=== PATIENT | female | born 1950 | race Caucasian/White ===

== ENCOUNTER 2016-08-08 12:33 | Observation (INO) | payer OTHER ==
[~2016-08-08] VITALS: Ht 170.2 cm; Wt 122.5 kg
[~2016-08-08 12:33] MED LIST: KETOROLAC TROMETHAMINE 60 MG/2 ML (IM) VIAL IM ONE; LACTATED RINGER'S 1000 ML INJ 1,000 ML IV ONE; ONDANSETRON HCL 4 MG/2 ML VIAL IV PUSH ONE; PHENYLEPH/NS 1000 MCG/10 ML SYR IV ONE; PROPOFOL 200 MG/20 ML AMP IV ONE; Z.0.NO CURRENT MEDS
[2016-08-08 12:36] VITALS: BP 148/108; PULSE 96; RESP 20; TEMP 98.3; O2SAT 98
--- NOTE | 2016-08-08 12:40 | PD ---
Physical Exam Date Seen by Provider: Aug 08, 2016 Time Seen by Provider: 12:38 Narrative 66 yo female here with N/V/D and RLQ pain for 48 hours. Nothing makes it better. No recent injury or travel. Cannot keep anything down. Pain is 7/10. Headache as well on the front. Pain only on the right side. No blood in urine or BM. Pain does not radiate. Vitals sign stable. Patient awaiting bed placement Data Data Last Documented VS Vital Signs Date Time Temp Pulse Resp B/P Pulse Ox O2 Delivery O2 Flow Rate FiO2 08/08/16 12:36 98.3 96 20 148/108 98 Room Air [facility] Medical Record Reviewed: Yes Supervised Visit with APRIL: No Ferdinand De Leon Aug 08, 2016 12:39
[2016-08-08] MEDS ORDERED: PROZ20CA11 PO (13:23)
[2016-08-08] MEDS ORDERED: BENA5TAB PO (13:23)
[2016-08-08] MEDS ORDERED: SODIUM CHLOR 0.9% 1000 ML INJ 1,000 ML IV SCH ×2 (13:36→18:12)
--- NOTE | 2016-08-08 13:37 | PD ---
HPI Chief Complaint: Abdominal Pain Time Seen by Provider: 13:37 Travel History International Travel<30 days: No Contact w/Intl Traveler<30days: No Traveled to known affect area: No History of Present Illness HPI 66-year-old female with history of hypertension presents to the emergency department for evaluation of right lower quadrant abdominal pain, nausea and diarrhea for 3 days. The patient states that the pain is a constant dull pain in the right lower quadrant. States is aggravated with palpation and movement. Denies any alleviating factors. States that she's had constant nausea and loss of appetite. Denies any vomiting. States that the first day that she was experiencing this abdominal pain she had copious amounts of diarrhea. States that since then she has not passed any stool over the past 2 days however admits that she has not really eaten or drank anything due to her nausea. She denies any fever, chills, chest pain, shortness of breath, dysuria, urinary frequency, hematuria. Prior abdominal surgeries include hysterectomy. She is also complaining of a pruritic rash on bilateral palms of hands for the past month, has been intermittently pruritic. Denies any change in soaps or detergents or contact with chemicals. She is not tried anything for this rash so far. No other complaints. PFSH Past Medical History High Cholesterol: Yes Diabetes: Yes Patient Takes Glucophage: No Past Surgical History Hysterectomy: Yes Other Surgery: Yes (cervical fusion, breast augmentation) Social History Alcohol Use: Yes (rare) Tobacco Use: No (quit 3 days ago) Substance Use: No Allergies-Medications (Allergen,Severity, Reaction): Coded Allergies: Penicillin (Verified Allergy, Intermediate, Swelling, 06/18/06) Tetracycline (Verified Adverse Reaction, Intermediate, Nausea/Vomiting, 06/18/06) Reported Meds & Prescriptions Reported Meds & Active Scripts Active Reported Benazepril (Benazepril HCl) 5 Mg Tab 5 Mg PO DAILY Prozac (Fluoxetine HCl) 20 Mg Cap 20 Mg PO DAILY Review of Systems Except as stated in HPI: all other systems reviewed are Neg Physical Exam Narrative GENERAL: Well-nourished and well-developed pleasant male patient in no acute distress who is nontoxic appearing. SKIN: Warm and dry. HEAD: Normocephalic and atraumatic. EYES: No injection, drainage, or hyphema noted. PERRLA. EOMI. ENT: No nasal drainage noted. Oropharynx is clear. NECK: Supple and the trachea is midline. CARDIOVASCULAR: Regular rate and rhythm. RESPIRATORY: Breath sounds are equal bilaterally with no accessory muscle use, wheezing, rhonchi, or crackles. GASTROINTESTINAL: Right lower quadrant tenderness to palpation. Abdomen is soft and nondistended. No rebound tenderness or guarding. MUSCULOSKELETAL: No obvious deformities, swelling, cyanosis, or ecchymosis is present throughout the upper and lower extremities. Patient has full range of motion without any signs of neurovascular compromise. NEUROLOGICAL: Awake, alert, and oriented. Normal speech and gait. Cranial nerves are grossly intact. Data Data Last Documented VS Vital Signs Date Time Temp Pulse Resp B/P Pulse Ox O2 Delivery O2 Flow Rate FiO2 08/08/16 15:37 82 18 142/79 Room Air 08/08/16 14:46 98 08/08/16 12:36 98.3 Orders Complete Blood Count With Diff (08/08/16 12:39) Comprehensive Metabolic Panel (08/08/16 12:39) Urinalysis - C+S If Indicated (08/08/16 12:39) Lipase (08/08/16 12:39) Ct Abd/Pel W Iv Contrast(Rout) (08/08/16 13:36) Sodium Chlor 0.9% 1000 Ml Inj (Ns 1000 M (08/08/16 13:36) Ondansetron Inj (Zofran Inj) (08/08/16 13:45) Iohexol 350 Inj (Omnipaque 350 Inj) (08/08/16 15:09) Ciprofloxacin 400 Mg Premix (Cipro 400 M (08/08/16 15:30) Metronidazole 500 Mg Inj (Flagyl 500 Mg (08/08/16 15:30) Morphine Inj (Morphine Inj) (08/08/16 15:30) NPO (08/08/16 15:50) Admit Order (Ed Use Only) (08/08/16 15:52) Labs Laboratory Tests Test 08/08/16 08/08/16 13:45 15:00 White Blood Count 10.7 TH/MM3 Red Blood Count 4.89 MIL/MM3 Hemoglobin 13.7 GM/DL Hematocrit 41.4 % Mean Corpuscular Volume 84.6 FL Mean Corpuscular Hemoglobin 27.9 PG Mean Corpuscular Hemoglobin 33.0 % Concent Red Cell Distribution Width 14.1 % Platelet Count 327 TH/MM3 Mean Platelet Volume 9.0 FL Neutrophils (%) (Auto) 73.8 % Lymphocytes (%) (Auto) 17.2 % Monocytes (%) (Auto) 7.4 % Eosinophils (%) (Auto) 1.2 % Basophils (%) (Auto) 0.4 % Neutrophils # (Auto) 7.9 TH/MM3 Lymphocytes # (Auto) 1.9 TH/MM3 Monocytes # (Auto) 0.8 TH/MM3 Eosinophils # (Auto) 0.1 TH/MM3 Basophils # (Auto) 0.0 TH/MM3 CBC Comment DIFF FINAL Differential Comment Sodium Level 136 MEQ/L Potassium Level 3.7 MEQ/L Chloride Level 102 MEQ/L Carbon Dioxide Level 24.3 MEQ/L Anion Gap 10 MEQ/L Blood Urea Nitrogen 8 MG/DL Creatinine 0.91 MG/DL Estimat Glomerular Filtration 62 ML/MIN Rate Random Glucose 94 MG/DL Calcium Level 9.1 MG/DL Total Bilirubin 1.2 MG/DL Aspartate Amino Transf 10 U/L (AST/SGOT) Alanine Aminotransferase 16 U/L (ALT/SGPT) Alkaline Phosphatase 136 U/L Total Protein 8.1 GM/DL Albumin 3.4 GM/DL Lipase 87 U/L Urine Color YELLOW Urine Turbidity CLEAR Urine pH 5.5 Urine Specific [place] 1.010 Urine Protein NEG mg/dL Urine Glucose (UA) NEG mg/dL Urine Ketones NEG mg/dL Urine Occult Blood NEG Urine Nitrite NEG Urine Bilirubin NEG Urine Urobilinogen LESS THAN 2.0 MG/DL Urine Leukocyte Esterase NEG Urine WBC 1 /hpf Urine Squamous Epithelial <1 /hpf Cells Urine Mucus FEW /lpf Microscopic Urinalysis Comment CULT NOT INDICATED MDM Medical Decision Making Medical Screen Exam Complete: Yes Emergency Medical Condition: Yes Differential Diagnosis Colitis versus diverticulitis versus appendicitis versus gastroenteritis Narrative Course 66-year-old female presents to the emergency department for evaluation of right lower quadrant abdominal pain, nausea and diarrhea. Patient is afebrile, vital signs are stable. Physical examination reveals she has right lower quadrant tenderness to palpation. No peritoneal signs. IV access was obtained, labs were drawn and sent. Patient is placed on cardiac telemetry pulse oximetry monitoring. Patient is administered IV fluids and Zofran. CBC is unremarkable. CMP shows slightly elevated total bilirubin of 1.2, elevated alkaline phosphatase 136. Urinalysis shows few mucus. CT of the abdomen and pelvis shows findings of concern for early appendicitis, mildly nonspecific bowel gas pattern most consistent with a mild ileus, mild hepatic steatosis. 1530 Gen. surgeon on-call was paged. Patient has been given Cipro and Flagyl IV. After speaking with Dr. Myers patient will be admitted under observation to his service for appendicitis. I discussed the case with my attending physician Dr. Lebron who is aware of the patients history, physical examination findings, and treatment plan. Physician Communication Physician Communication I spoke with Dr. Myers general surgeon collection clerk who agrees to admit the patient under observation to his service. Diagnosis Primary Impression: Appendicitis Qualified Code: K35.89 - Other acute appendicitis Admitting Information Admitting Physician Requests: Observation Sheyla Huber Aug 08, 2016 13:37
[2016-08-08] MEDS ORDERED: ONDANSETRON HCL 4 MG/2 ML VIAL IV PUSH ONE (13:45)
[2016-08-08 13:55] LABS: AUTOMATED NEUTROPHIL # 7.9 TH/MM3 (1.8-7.7); BASOPHIL % 0.4 % (0.0-2.0); EOSINOPHIL # 0.1 TH/MM3 (0-0.4); EOSINOPHIL % 1.2 % (0.0-4.0); HEMATOCRIT 41.4 % (35.0-46.0); HEMO FLAGS DIFF FINAL; LYMPH % 17.2 % (9.0-44.0); LYMPHOCYTE # 1.9 TH/MM3 (1.0-4.8); MEAN CELL VOLUME 84.6 FL (80.0-100.0); MEAN CORPUSCULAR HEMOGLOBIN 27.9 PG (27.0-34.0); MONO % 7.4 % (0.0-8.0); NEUT % 73.8 % (16.0-70.0); PLATELET COUNT 327 TH/MM3 (150-450); RED BLOOD COUNT 4.89 MIL/MM3 (4.00-5.30); RED CELL DISTRIBUTION WIDTH 14.1 % (11.6-17.2); WHITE BLOOD COUNT 10.7 TH/MM3 (4.0-11.0)
[2016-08-08 14:13] LABS: ANION GAP 10 MEQ/L (5-15); AST (GOT) 10 U/L (15-37); BICARBONATE 24.3 MEQ/L (21.0-32.0); BLOOD UREA NITROGEN 8 MG/DL (7-18); CHLORIDE 102 MEQ/L (98-107); GLOMERULAR FILTRATION RATE 62 ML/MIN (>89); POTASSIUM 3.7 MEQ/L (3.5-5.1); SODIUM (NA) 136 MEQ/L (136-145)
[2016-08-08 14:17] LABS: ALKALINE PHOSPHATASE 136 U/L (45-117); ALT (GPT) 16 U/L (10-53); TOTAL BILIRUBIN ADULT 1.2 MG/DL (0.2-1.0)
[2016-08-08 14:46] VITALS: BP 108/62; PULSE 86; RESP 16; O2SAT 98
[2016-08-08] MEDS ORDERED: IOHEXOL 350 MG/ML 10 ML VIAL (for RAD DIAG) IV ONE (15:09)
[2016-08-08 15:19] LABS: BLOOD, URINE NEG (NEG); COMMENT (UR) CULT NOT INDICATED; CULTURE IF INDICATED CULT NOT INDICATED; GLUCOSE,URINE NEG (NEG); KETONE, URINE NEG (NEG); MUCUS URINE FEW /lpf (OCC); NITRITE,URINE NEG (NEG); PH, URINE 5.5 (5.0-8.5); SQUAMOUS EPITHELIAL CELL URINE <1 /hpf (0-5); URINE COLOR YELLOW (YELLW/STRAW)
--- NOTE | 2016-08-08 15:26 | RADRPT ---
EXAM DATE/TIME: 08/08/2016 15:02 [facility] COMPARISON: No previous studies available for comparison. INDICATIONS : Right lower quadrant pain. IV CONTRAST: 95 cc Omnipaque 350 (iohexol) IV ORAL CONTRAST: No oral contrast ingested. RADIATION DOSE: 21.95 CTDIvol (mGy) MEDICAL HISTORY : None SURGICAL HISTORY : Hysterectomy. ENCOUNTER: Initial ACUITY: 1 day PAIN SCALE: 5/10 LOCATION: Right lower quadrant TECHNIQUE: Volumetric scanning of the abdomen and pelvis was performed. Using automated exposure control and ad justment of the mA and/or kV according to patient size, radiation dose was kept as low as reasonably achievable to obtain optimal diagnostic quality images. FINDINGS: LOWER LUNGS: The visualized lower lungs are clear. LIVER: Homogeneous density without lesion. There is no dilation of the biliary tree. No calcified gallston es. There is mild hepatic steatosis SPLEEN: Normal size without lesion. PANCREAS: Within normal limits. KIDNEYS: Normal in size and shape. There is no mass, stone or hydronephrosis. ADRENAL GLANDS: Within normal limits. VASCULAR: There is no aortic aneurysm. BOWEL/MESENTERY: The appendix is mildly prominent measuring up to 1 cm in diameter with mild surrounding inflammatory change in the mesentery. There is no appendicolith, free air or fluid. There is a mildly nonspecific bowel gas pattern with nondilated loops of small bowel several small air-fluid levels. There is no fr ee air or fluid. ABDOMINAL WALL: Within normal limits. RETROPERITONEUM: There is no lymphadenopathy. BLADDER: No wall thickening or mass. REPRODUCTIVE: Within normal limits. INGUINAL: There is no lymphadenopathy or hernia. MUSCULOSKELETAL: Within normal limits for patient age. CONCLUSION: 1. Findings of concern for early appendicitis. 2. Mildly nonspecific bowel gas pattern most consistent with a mild ileus. 3. Mild hepatic steatosis. Dallas Armenta MD on August 08, 2016 at 15:19 Board Certified Radiologist. This report was verified electronically.
[2016-08-08] MEDS ORDERED: MORPHINE SULFATE 4 MG/ML INJ IV PUSH ONE (15:30)
[2016-08-08] MEDS ORDERED: CIPROFLOXACIN 400 MG PREMIX 200 ML IV ONE (15:30)
[2016-08-08] MEDS ORDERED: metroNIDAZOLE 500 MG INJ 100 ML IV ONE (15:30)
[2016-08-08 15:37] VITALS: BP 142/79; PULSE 82; RESP 18
[2016-08-08 17:01] VITALS: BP 119/72; PULSE 80; RESP 18; O2SAT 98
--- NOTE | 2016-08-08 18:10 | HHI.HP ---
cc: Kyle Myers MD [facility] Service General Surgery Primary Care Physician Milton Kenny Do, MD Admission Diagnosis Appendicitis Chief Complaint: Abdominal pain x 72 hours History of Present Illness This is a 66 year old female with a PMH of prolapse heart valve, hyperlipidemia and depression who has had RLQ pain x 72 hours. She describes the pain as dull and constant and has not increased since it started on Thursday. She has had nausea but no vomiting. She has had diarrhea. She has had very little to eat and only sipped on some tomato juice and had about 6 crackers since Thursday. She did some yard work on Thursday and attributed the pain to a pulled muscle. She had come to the ED for evaluation of her abdominal pain. A CT was done with shows signs of early appendicitis. Her WBC is 10.7. A General Surgery consult has been requested for evaluation of RLQ pain. Review of Systems Constitutional: COMPLAINS OF: Weight loss, DENIES: Fever, Chills Endocrine: DENIES: Polydipsia, Polyuria, Polyphagia Eyes: DENIES: Diplopia, Eye inflammation Ears, nose, mouth, throat: DENIES: Hearing loss Respiratory: DENIES: Apneas, Cough Cardiovascular: DENIES: Chest pain Gastrointestinal: COMPLAINS OF: Abdominal pain (RLQ pain ), Diarrhea, Nausea, DENIES: Vomiting Genitourinary: DENIES: Urinary frequency, Urinary incontinence Musculoskeletal: DENIES: Muscle aches Integumentary: DENIES: Abnormal pigmentation Hematologic/lymphatic: DENIES: Bruising Immunologic/allergic: DENIES: Eczema Neurologic: DENIES: Headache, Localized weakness Psychiatric: DENIES: Confusion, Mood changes, Hallucinations Past Family Social History Past Medical History Prolapsed valve in heart Depression Hyperlipemia Currently being worked up for auto-immune disease by PCP Fibromyalgia Past Surgical History Post cervical fusion TIFFANIE Tubal ligation Breast augmentation x2 Reported Medications Benazepril Prozac Allergies: Coded Allergies: Penicillin (Verified Allergy, Intermediate, Swelling, 06/18/06) Tetracycline (Verified Adverse Reaction, Intermediate, Nausea/Vomiting, 06/18/06) Family History Non contributory Social History + Tobacco use- Quit three days ago; prior to that time: 6 cigarettes/daily Denies ETOH Denies illicit drug use Takes care of terminal ill sister at home Physical Exam Vital Signs Vital Signs Date Time Temp Pulse Resp B/P Pulse Ox O2 Delivery O2 Flow Rate FiO2 08/08/16 17:01 80 18 119/72 98 Room Air 08/08/16 15:37 82 18 142/79 Room Air 08/08/16 14:46 86 16 108/62 98 Room Air 08/08/16 12:36 98.3 96 20 148/108 98 Room Air Physical Exam GENERAL: Pleasant 66 year old female in NAD. SKIN: Warm and dry. HEAD: Atraumatic. Normocephalic. EYES: Pupils equal and round. No scleral icterus. No injection or drainage. ENT: No nasal bleeding or discharge. Mucous membranes pink and moist. NECK: Trachea midline. CARDIOVASCULAR: Regular rate and rhythm. RESPIRATORY: No accessory muscle use. Clear to auscultation. Breath sounds equal bilaterally. GASTROINTESTINAL: Abdomen soft, obese; tender in RLQ; non distended. MUSCULOSKELETAL: Extremities without clubbing, cyanosis, or edema. No obvious deformities. NEUROLOGICAL: Awake and alert. No obvious cranial nerve deficits. Motor grossly within normal limits. Five out of 5 muscle strength in the arms and legs. Normal speech. PSYCHIATRIC: Appropriate mood and affect; insight and judgment normal. Laboratory Laboratory Tests Test 08/08/16 08/08/16 13:45 15:00 White Blood Count 10.7 Red Blood Count 4.89 Hemoglobin 13.7 Hematocrit 41.4 Mean Corpuscular Volume 84.6 Mean Corpuscular Hemoglobin 27.9 Mean Corpuscular Hemoglobin 33.0 Concent Red Cell Distribution Width 14.1 Platelet Count 327 Mean Platelet Volume 9.0 Neutrophils (%) (Auto) 73.8 Lymphocytes (%) (Auto) 17.2 Monocytes (%) (Auto) 7.4 Eosinophils (%) (Auto) 1.2 Basophils (%) (Auto) 0.4 Neutrophils # (Auto) 7.9 Lymphocytes # (Auto) 1.9 Monocytes # (Auto) 0.8 Eosinophils # (Auto) 0.1 Basophils # (Auto) 0.0 CBC Comment DIFF FINAL Differential Comment Sodium Level 136 Potassium Level 3.7 Chloride Level 102 Carbon Dioxide Level 24.3 Anion Gap 10 Blood Urea Nitrogen 8 Creatinine 0.91 Estimat Glomerular Filtration 62 Rate Random Glucose 94 Calcium Level 9.1 Total Bilirubin 1.2 Aspartate Amino Transf 10 (AST/SGOT) Alanine Aminotransferase 16 (ALT/SGPT) Alkaline Phosphatase 136 Total Protein 8.1 Albumin 3.4 Lipase 87 Urine Color YELLOW Urine Turbidity CLEAR Urine pH 5.5 Urine Specific [place] 1.010 Urine Protein NEG Urine Glucose (UA) NEG Urine Ketones NEG Urine Occult Blood NEG Urine Nitrite NEG Urine Bilirubin NEG Urine Urobilinogen LESS THAN 2.0 Urine Leukocyte Esterase NEG Urine WBC 1 Urine Squamous Epithelial <1 Cells Urine Mucus FEW Microscopic Urinalysis Comment CULT NOT INDICATED Result Diagram: 08/08/16 1345 08/08/16 1345 Imaging Last 48 hours Impressions Abdomen/Pelvis CT 08/08/16 1336 Signed Impressions: Service Date/Time: Monday, August 08, 2016 15:02 - CONCLUSION: 1. Findings of concern for early appendicitis. 2. Mildly nonspecific bowel gas pattern most consistent with a mild ileus. 3. Mild hepatic steatosis. Dallas Armenta MD Assessment and Plan Assessment and Plan 66 year old female with RLQ pain and CT shows early acute appendicitis -NPO -IV antibiotics -IVF -Tentatively plan for OR for laparoscopic appendectomy Discussed Condition With Dr. Myers Ms. [facility] Addendum Remarks The patient was seen and examined by myself and I agree with the above assessment and plan. I discussed treatment options with the patient and she has elected to undergo surgical treatment with laparoscopic appendectomy. discussed r/b/a to surgery. Will proceed ROYCE. Elzbieta Leung Aug 08, 2016 18:10 Kyle Myers MD Aug 08, 2016 22:38
[2016-08-08] MEDS ORDERED: metroNIDAZOLE 500 MG INJ 100 ML IV SCH (18:15)
[2016-08-08] MEDS ORDERED: CIPROFLOXACIN 400 MG PREMIX 200 ML IV SCH (18:15)
[2016-08-08] MEDS ORDERED: METOCLOPRAMIDE HCL 10 MG/2 ML VIAL IV PRN (18:15)
[2016-08-08] MEDS ORDERED: SODIUM CHLORIDE 0.9% FLUSH 10 ML FLUSH IV FLUSH PRN ×2 (18:15→23:15)
[2016-08-08 19:04] VITALS: BP 125/78; TEMP 98.7
[2016-08-08 19:43] VITALS: BP 120/76; PULSE 83; RESP 20; TEMP 98; O2SAT 98
[2016-08-08] MEDS ORDERED: SODIUM CHLORIDE 0.9% FLUSH 10 ML FLUSH IV FLUSH SCH (21:00)
[2016-08-08] MEDS ORDERED: BUPIVACAINE/EPINEPHRINE 0.25% PF 30 ML VIAL ONE (21:14)
[2016-08-08] MEDS ORDERED: fentaNYL CITRATE 250 MCG/5 ML AMP ONE (21:58)
[2016-08-08] MEDS ORDERED: ACETAMINOPHEN 1000 MG/100 ML VIAL IV ONE (22:05)
[2016-08-08] MEDS ORDERED: SUGAMMADEX SODIUM 200 MG/2 ML VIAL IV PUSH ONE ×2 (22:35)
[2016-08-08] MEDS ORDERED: DO NOT ADM ANY ANTICOAGULANT DRUGS PRN (23:00)
--- NOTE | 2016-08-08 23:09 | HHI.PR ---
Immediate Post Op Note Procedure Date: Aug 08, 2016 Pre Op Diagnosis: (1) Appendicitis Post Op Diagnosis: (1) Acute appendicitis, uncomplicated Surgeon: Kyle Myers Processing Rep(s): staff Procedure: laparoscopic appendectomy Findings: acute appy Complications: none Specimen(s) removed: appy Estimated blood loss: 10ml Anesthesia: General, Local Drains: None IVF Patient to: PACU Patient Condition: Good Kyle Myers MD Aug 08, 2016 23:09
[2016-08-08] MEDS ORDERED: MAGNESIUM HYDROXIDE SUSP 30 ML CUP PO PRN (23:15)
[2016-08-08] MEDS ORDERED: Post-op Orders (for Pharmacy) MISC XX ONE (23:15)
[2016-08-08] MEDS ORDERED: diphenhydrAMINE HCL 25 MG CAP PO PRN (23:15)
[2016-08-08] MEDS ORDERED: ACETAMINOPHEN/HYDROcodone 325 MG/5 MG TAB PO PRN (23:15)
[2016-08-08] MEDS ORDERED: ACETAMINOPHEN 325 MG TAB PO PRN (23:15)
[2016-08-08] MEDS ORDERED: ONDANSETRON HCL 4 MG/2 ML VIAL IV PRN (23:15)
[2016-08-08] MEDS: SODIUM CHLORIDE 0.9% FLUSH 10 ML FLUSH IV FLUSH SCH (23:15)
[2016-08-08] MEDS ORDERED: IBUPROFEN 600 MG TAB PO PRN (23:15)
[2016-08-08] MEDS: SODIUM CHLOR 0.9% 1000 ML INJ 1,000 ML IV SCH (23:45)
[2016-08-09] VITALS: BP 118/68; PULSE 82; RESP 20; TEMP 97.3; O2SAT 98
[2016-08-09 04:00] VITALS: BP 147/84; PULSE 83; RESP 20; TEMP 96.5; O2SAT 98
[2016-08-09] MEDS ORDERED: metroNIDAZOLE 500 MG INJ 100 ML IV SCH (05:00)
[2016-08-09] MEDS ORDERED: CIPROFLOXACIN 400 MG PREMIX 200 ML IV SCH (05:00)
--- NOTE | 2016-08-09 07:32 | HHI.PR ---
Subjective Subjective Notes pain ok, tolerating PO Objective Vitals/I&O Vital Signs Date Time Temp Pulse Resp B/P Pulse Ox O2 Delivery O2 Flow Rate FiO2 08/09/16 04:00 96.5 83 20 147/84 98 08/09/16 00:00 Nasal Cannula 2 Labs Laboratory Tests Test 08/08/16 08/08/16 13:45 15:00 White Blood Count 10.7 Red Blood Count 4.89 Hemoglobin 13.7 Hematocrit 41.4 Mean Corpuscular Volume 84.6 Mean Corpuscular Hemoglobin 27.9 Mean Corpuscular Hemoglobin 33.0 Concent Red Cell Distribution Width 14.1 Platelet Count 327 Mean Platelet Volume 9.0 Neutrophils (%) (Auto) 73.8 Lymphocytes (%) (Auto) 17.2 Monocytes (%) (Auto) 7.4 Eosinophils (%) (Auto) 1.2 Basophils (%) (Auto) 0.4 Neutrophils # (Auto) 7.9 Lymphocytes # (Auto) 1.9 Monocytes # (Auto) 0.8 Eosinophils # (Auto) 0.1 Basophils # (Auto) 0.0 CBC Comment DIFF FINAL Differential Comment Sodium Level 136 Potassium Level 3.7 Chloride Level 102 Carbon Dioxide Level 24.3 Anion Gap 10 Blood Urea Nitrogen 8 Creatinine 0.91 Estimat Glomerular Filtration 62 Rate Random Glucose 94 Calcium Level 9.1 Total Bilirubin 1.2 Aspartate Amino Transf 10 (AST/SGOT) Alanine Aminotransferase 16 (ALT/SGPT) Alkaline Phosphatase 136 Total Protein 8.1 Albumin 3.4 Lipase 87 Urine Color YELLOW Urine Turbidity CLEAR Urine pH 5.5 Urine Specific [place] 1.010 Urine Protein NEG Urine Glucose (UA) NEG Urine Ketones NEG Urine Occult Blood NEG Urine Nitrite NEG Urine Bilirubin NEG Urine Urobilinogen LESS THAN 2.0 Urine Leukocyte Esterase NEG Urine WBC 1 Urine Squamous Epithelial <1 Cells Urine Mucus FEW Microscopic Urinalysis Comment CULT NOT INDICATED Radiology Last 48 hours Impressions Abdomen/Pelvis CT 08/08/16 1336 Signed Impressions: Service Date/Time: Monday, August 08, 2016 15:02 - CONCLUSION: 1. Findings of concern for early appendicitis. 2. Mildly nonspecific bowel gas pattern most consistent with a mild ileus. 3. Mild hepatic steatosis. Dallas Armenta MD Cardiovascular: Regular Lungs: Clear Abdomen: Non-distended, Post-op tenderness Extremities: No edema, Perfused A/P Assessment and Plan 66yo female s/p lap appy, stable. pain ok on meds tolerating PO DC home later today Kyle Myers MD Aug 09, 2016 07:32
[2016-08-09 08:00] VITALS: BP 132/82; PULSE 76; RESP 17; TEMP 96.8; O2SAT 97
[2016-08-09] MEDS: SODIUM CHLOR 0.9% 1000 ML INJ 1,000 ML IV SCH (08:36)
[2016-08-09] MEDS: SODIUM CHLORIDE 0.9% FLUSH 10 ML FLUSH IV FLUSH SCH (08:36)
[2016-08-09] MEDS ORDERED: PANTOPRAZOLE SODIUM 40 MG VIAL IV SCH (09:00)
[2016-08-09] MEDS ORDERED: HEPARIN SODIUM - SQ 10,000 UNITS/ML VIAL SQ SCH (22:00)
--- NOTE | 2016-08-11 10:19 | MP ---
cc: DARINEL GUTIÉRREZ DATE OF SURGERY: 08/08/2016 PREOPERATIVE DIAGNOSIS Acute appendicitis. POSTOPERATIVE DIAGNOSIS Acute appendicitis. PROCEDURE Laparoscopic appendectomy. ATTENDING SURGEON Dr. Gutiérrez. [employer] WORK[employer] Staff. ANESTHESIA General. FINDINGS Acute suppurative appendicitis. SPECIMENS REMOVED Appendix. COMPLICATIONS None. BLOOD LOSS Less than 20 ccs. INDICATIONS FOR PROCEDURE The patient is a 56-year-old female who developed 3 days of nonspecific abdominal pain. The patient was seen in the emergency department at [facility] and underwent a CT scan which shows inflammation around her appendix concerning for possible early appendicitis. General surgery was consulted and had discussion with the patient about options of further operative and nonoperative treatments. The patient wished to undergo diagnostic laparoscopy and appendectomy. Risks, benefits, alternatives were discussed with the patient prior to the procedure, the patient has agreed to undergo the procedure. PROCEDURE After verbal consent was obtained the patient was taken to the operating room and placed in the supine position and placed under general endotracheal anesthesia. The patient's abdomen was prepped and draped in sterile fashion. The patient's abdomen was entered left of the umbilicus with a [id number] 5 mm camera and directly visualized entering the abdominal cavity and insufflated the abdomen. The survey of the abdomen with a 5 mm camera without evidence of any complication from our entry. Then we were able to place a separate 5-mm port in the suprapubic position as well as one in the left lower quadrant. The periumbilical site was upsized to a 10-mm port for planned stapler use. We then were able to quite easily relocate the omentum right lower quadrant, identify the appendix from the anterior tinea of the colon. This was inflamed and suppurative without any rupture. The base was essentially normal. We made a window at the base of the appendix, divided this as it splayed into the cecum with a white load on the echelon GI stapler. We then divided the appendiceal mesentery with a craig load on the echelon GI stapler. We removed the appendix from the abdomen with an EndoCatch bag through the periumbilical 10 mm port. We then surveyed the abdomen, there was no evidence of any pathology and we were able to relocate the omentum to the right lower quadrant. There was no bleeding or signs of ischemia at the staple lines. We then removed all ports under visualization with the laparoscope and expressed pneumoperitoneum. The 10 mm port did have some blood at the base of it, concerned about possible abdominal wall bleeding. We widened this port with the 11 blade scalpel and looked closer with appendiceal retractors and there was just a very small amount of bleeding coming from small vessel on fascial layer inferiorly which was just cauterized without difficulty. We had excellent hemostasis. We turned our attention towards closure. We closed the posterior rectus and anterior rectus fascial layers with [id number] Vicryl sutures. We closed the skin with 4-0 Monocryl and Dermabond. The patient at this point was discontinued from anesthesia and taken to the PACU in stable condition. The patient tolerated the procedure well with no apparent complications. All counts were correct. I was present and scrubbed for the entire procedure. MD CRISTIANO Zamora/RASHMI /5:23 AM /9:49 AM JOSSUE
== END 2016-08-09 10:17 | disposition home or self-care (01) ==
LOC: NEPD 12:33 → NEDA 15:54 → NEPFCDU 19:42 → N07B 22:22 → N07A 08-09 00:08
PROVIDERS: ADMIT Surgery; ATTEND Surgery
PROC: 0DTJ4ZZ Resection of Appendix, Percutaneous Endoscopic Approach (ICD-10-PCS; principal; 2016-08-08 22:22)
DX: K35.89 Other acute appendicitis (principal); I10 Essential (primary) hypertension; L29.9 Pruritus, unspecified; E78.00 Pure hypercholesterolemia, unspecified; K56.7 Ileus, unspecified; E11.9 Type 2 diabetes mellitus without complications; I49.9 Cardiac arrhythmia, unspecified; M06.9 Rheumatoid arthritis, unspecified; E66.9 Obesity, unspecified; Z68.41 Body mass index [BMI] 40.0-44.9, adult; Z87.891 Personal history of nicotine dependence; Z90.710 Acquired absence of both cervix and uterus; Z98.1 Arthrodesis status; Z79.899 Other long term (current) drug therapy
CPT/HCPCS: 00840; 44970; 74177; 80053; 81001; 83690; 85025; 88304; 96361; 96374; 96375; 99285; C9113; G0378; J0131; J0744; J1885; J2270; J2370; J2405; J2765; J3010; J7030; J7120; Q9967